=== PATIENT | female | born 1975 | race Hispanic/Latino ===

== ENCOUNTER 2018-07-15 18:46 | Emergency (ER) | payer SELFPAY ==
[~2018-07-15] VITALS: Ht 165.1 cm; Wt 99.8 kg
--- OUTSIDE RECORDS SUMMARY | 2018-07-15 18:48 | XMS REPORT ---
Author Author Admin, [place] Organization [facility] Address Unknown Phone Unavailable Allergies, Adverse Reactions, Alerts Allergy Name Reaction Description Start Date Severity Status Provider No Known Allergies Marylu Lockett MA Conditions or Problems Problem Name Problem Code Onset Date Status Entry Date Provider Comment Standard Description Annotate Contraception management V25.09 Active Aileen Vines MD Encounter for other general counseling and advice on contraceptive management Abnormal labs 790.99 Active Aileen Vines MD Other nonspecific findings on examination of blood BMI 33.0-33.9 Active Aileen Vines MD Body Mass Index 33.0-33.9, adult IUD check V25.42 Active Aileen Vines MD Encounter for surveillance of intrauterine contraceptive device IUD insertion V25.11 Active Aileen Vines MD Encounter for insertion of intrauterine contraceptive device Family history of diabetes V18.0 Active Aileen Vines MD Family history of diabetes mellitus 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 V72.31 Active Aileen Vines MD Routine gynecological examination IUD removal V25.12 Active Aileen Vines MD Encounter for removal of intrauterine contraceptive device Medication List Medication Instructions Start Date Stop Date Generic Name NDC Status Provider Patient Instruction No Drug Therapy Prescribed - none known did ask Aileen Vines MD Vital Signs Date Name Value Unit Range Description blood pressure, diastolic 96 mm[Hg] BP nicholas blood pressure, systolic 151 mm[Hg] BP sys height E&M 65 [in_us] Bdy height pulse rate E&M 76 /min Heart rate respiratory rate E&M 19 /min Resp rate temperature E&M 98.5 [degF] Body temperature weight E&M 201.80 [lb_av] Weight Measured blood pressure, diastolic 96 mm[Hg] BP nicholas blood pressure, systolic 138 mm[Hg] BP sys height E&M 65 [in_us] Bdy height pulse rate E&M 73 /min Heart rate respiratory rate E&M 17 /min Resp rate temperature E&M 98.0 [degF] Body temperature weight E&M 203.25 [lb_av] Weight Measured blood pressure, diastolic 95 mm[Hg] BP nicholas blood pressure, systolic 143 mm[Hg] BP sys height E&M 65 [in_us] Bdy height pulse rate E&M 80 /min Heart rate respiratory rate E&M 17 /min Resp rate temperature E&M 97.9 [degF] Body temperature weight E&M 203.38 [lb_av] Weight Measured blood pressure, diastolic 93 mm[Hg] BP nicholas blood pressure, systolic 137 mm[Hg] BP sys height E&M 65 [in_us] Bdy height pulse rate E&M 72 /min Heart rate respiratory rate E&M 17 /min Resp rate temperature E&M 98.4 [degF] Body temperature weight E&M 203 [lb_av] Weight Measured Diagnostic Results Date Name Value Unit Range Description Lab Report: Comp. Metabolic Panel (14), Lipid Panel, RPR, Rfx Qn RPR/Con ... - Serology hepatitis C antibody, serum <0.1 0.0-0.9 Lab Report: Comp. Metabolic Panel (14), Lipid Panel, RPR, Rfx Qn RPR/Con ... - Chemistry calcium, serum 9.2 mg/dL 8.7-10.2 urea nitrogen, blood 10 mg/dL 6-24 urea nitrogen/creatinine ratio, serum 15 9-23 creatinine, serum 0.68 mg/dL 0.57-1.00 Lab Report: Comp. Metabolic Panel (14), Lipid Panel, RPR, Rfx Qn RPR/Con ... - Genetics/fertility eGFR if 127 mL/min/1.73m2 >59 Lab Report: Comp. Metabolic Panel (14), Lipid Panel, RPR, Rfx Qn RPR/Con ... - Chemistry chloride, serum 101 mmol/L 96-106 triglyceride, serum, fasting 138 mg/dL 0-149 Estimated Glomerular Filtration Rate (calc) 110 mL/min/1.73m2 >59 carbon dioxide, venous blood 25 mmol/L 18-29 Lab Report: Comp. Metabolic Panel (14), Lipid Panel, RPR, Rfx Qn RPR/Con ... - Serology rapid plasma reagin antibody, serum Non Reactive Non Reactive Lab Report: Ct, Ng, Trich vag by PABLITO - Lab chlamydia DNA probe Negative Negative Lab Report: Comp. Metabolic Panel (14), Lipid Panel, RPR, Rfx Qn RPR/Con ... - Chemistry protein, total, serum 6.0 g/dL 6.0-8.5 Lab Report: Ct, Ng, Trich vag by PABLITO - Microbiology Neisseria gonorrhoeae DNA probe Negative Negative Lab Report: Comp. Metabolic Panel (14), Lipid Panel, RPR, Rfx Qn RPR/Con ... - Chemistry HDL cholesterol, serum 60 mg/dL >39 sodium, serum 139 mmol/L 134-144 Office Visit: Procedures Rm#2 - Chemistry beta HCG, urine, semiquantitative negative Lab Report: Comp. Metabolic Panel (14), Lipid Panel, RPR, Rfx Qn RPR/Con ... - Chemistry albumin/globulin ratio, serum 2.3 1.2-2.2 alkaline phosphatase, serum 94 U/L 39-117 hepatitis B surface antigen Negative Negative alanine aminotransferase (SGPT), serum 10 U/L 0-32 LDL cholesterol, serum 156 mg/dL 0-99 cholesterol, serum 244 mg/dL [phone]/01/26 bilirubin, serum, total 0.4 mg/dL 0.0-1.2 Lab Report: Potassium, Serum - Chemistry potassium, serum 5.3 mmol/L 3.5-5.2 Lab Report: Comp. Metabolic Panel (14), Lipid Panel, RPR, Rfx Qn RPR/Con ... - Chemistry blood glucose, random 96 mg/dL 65-99 globulin, serum 1.8 1.5-4.5 aspartate aminotransferase (SGOT), serum 12 U/L 0-40 albumin, serum 4.2 g/dL 3.5-5.5 very low density lipoproteins 28 mg/dL 5-40 Encounters Date Encounter Provider Code Facility 09:46:28 CDT Est Patient Problem Focus - 64645 Aileen Vines MD CPT-85259 [facility] 09:38:53 INSERTER Est Patient Problem Focus - 48510 Aileen Vines MD CPT-12066 [facility] 09:27:45 INSERTER Est Patient Problem Focus - 94415 Aileen Vines MD CPT-68524 [facility] 09:37:28 INSERTER New Patient Problem Focus - 72008 Aileen Vines MD CPT-35433 [facility] Procedures Code Procedure Name Date Entry Date Standard Description CPT-56589 IUD Insertion 09:27:45 INSERTER CPT-73755 Urinalysis - Dip only - In House 09:30:43 INSERTER CPT-91473 Est Patient Well Exam (18 - 39 Yrs) - [id number] 09:30:42 INSERTER CPT-43581 IUD Removal 09:37:28 INSERTER
--- OUTSIDE RECORDS SUMMARY | 2018-07-15 18:48 | XMS REPORT ---
Author Author [facility] Address Unknown Phone Unavailable Care Team Providers Care Learning Coordinator Name Role Phone Unavailable Unavailable Payers Payer Name Policy Type Policy Number Effective Date Expiration Date Problems This patient has no known problems. Allergies, Adverse Reactions, Alerts Allergy Name Allergy Type Status Severity Reaction(s) Onset Date Inactive Date Treating Clinician Comments No Known Allergies DA Active U 2018-03-25 00:00:00 No Known Allergies DA Active U 2014-11-08 00:00:00 Medications This patient has no known medications.
[2018-07-15] MEDS ORDERED: ALBUTEROL SULF 0.083% NEB SOLN 3 ML NEB NEB STA (18:53)
[2018-07-15] MEDS ORDERED: IPRATROPIUM BROMIDE 0.02% 2.5 ML NEB NEB STA (18:53)
[2018-07-15] MEDS ORDERED: DEXAMETHASONE SOD PHOS 10 MG/1 ML VIAL IM ONE (19:00)
[2018-07-15] MEDS ORDERED: ACETAMINOPHEN/CODEINE ELIX 120-12 MG/5 ML UDC PO ONE (19:00)
[2018-07-15 19:35] LABS: STREPTOCOCCUS GRP A ANTIGEN NEGATIVE (NEGATIVE)
--- NOTE | 2018-07-15 19:35 | Diagnostic Imaging Report ---
EXAMINATION: PA and lateral views of the chest. COMPARISON: None CLINICAL HISTORY: Cough DISCUSSION: Lines/tubes: None. Lungs: The lungs are well inflated and clear. No pneumonia or pulmonary edema. Pleura: No pleural effusion or pneumothorax. Heart and mediastinum: The cardiomediastinal silhouette is normal. Bones and soft tissues: No acute bony abnormalities. IMPRESSION: No acute cardiopulmonary abnormalities. Signed by: Dr. Matt Pandya M.D. on 07/15/2018 7:31 PM
[2018-07-15 19:45] LABS: INFLUENZAE A&B ANTIGEN (RAPID) NEGATIVE (NEGATIVE)
== END 2018-07-15 20:25 | disposition home or self-care (01) ==
LOC: ER 18:46
DX: J20.9 Acute bronchitis, unspecified (principal); J02.9 Acute pharyngitis, unspecified; I10 Essential (primary) hypertension; G40.909 Epilepsy, unspecified, not intractable, without status epilepticus
CPT/HCPCS: 71046; 83518; 87070; 87400; 94640; 96372; 99283; J1100

== ENCOUNTER 2020-08-22 14:09 | Emergency (ER) | payer OTHER ==
[~2020-08-22] VITALS: Ht 162.6 cm; Wt 100.7 kg
[2020-08-22] MEDS ORDERED: KETOROLAC TROMETHAMINE 30 MG/ML VIAL IV NR (14:33)
[2020-08-22] MEDS: SODIUM CHLORIDE 0.9% 1000ML 1,000 ML IV SCH ×2 (15:07→15:14)
[2020-08-22] MEDS: METOCLOPRAMIDE HCL 10 MG/2ML VIAL IV NR ×2 (15:07→15:13)
[2020-08-22] MEDS: DIPHENHYDRAMINE HCL 25 MG CAP PO NR ×2 (15:07→15:14)
== END 2020-08-22 16:23 | disposition home or self-care (01) ==
LOC: ER 14:13
DX: G43.909 Migraine, unspecified, not intractable, without status migrainosus (principal); I10 Essential (primary) hypertension; G40.909 Epilepsy, unspecified, not intractable, without status epilepticus; F41.9 Anxiety disorder, unspecified; F43.10 Post-traumatic stress disorder, unspecified; F31.9 Bipolar disorder, unspecified
CPT/HCPCS: 70450; 99283; J1885; J2765; J7030

== ENCOUNTER → 2023-02-11 | Outpatient (REF) | payer OTHER | LOC: MAMMO 08:27 | PROVIDERS: ATTEND Internal Medicine | DX: Z12.31 Encounter for screening mammogram for malignant neoplasm of breast (principal) | CPT/HCPCS: 77067 ==

== ENCOUNTER 2024-03-01 16:08 | Emergency (ER) | payer SELFPAY ==
[~2024-03-01] VITALS: Ht 162.6 cm; Wt 101.2 kg
[2024-03-01 16:18] VITALS: PULSE 83; RESP 16; TEMP 98
[2024-03-01] MEDS ORDERED: mirena (17:24)
[2024-03-01] MEDS ORDERED: PROZAC10 MG PO (17:24)
[2024-03-01] MEDS ORDERED: LAMICTAL25 MG (17:24)
[2024-03-01 21:16] VITALS: BP 118/65; PULSE 84; RESP 18; TEMP 98.2; O2SAT 100
== END 2024-03-01 20:15 | disposition home or self-care (01) ==
LOC: FSED 16:40
DX: R04.2 Hemoptysis (principal); I10 Essential (primary) hypertension; G40.909 Epilepsy, unspecified, not intractable, without status epilepticus; F41.9 Anxiety disorder, unspecified; F31.9 Bipolar disorder, unspecified
CPT/HCPCS: 71046; 99284